=== PATIENT | female | born 1950 | race Caucasian/White ===

== ENCOUNTER 2017-09-02 14:33 | Emergency (ER) | payer MEDICARE, BC ==
[2017-09-02 14:54] VITALS: BP 170/90
--- NOTE | 2017-09-02 15:22 | ED Physician Documentation ---
PD HPI UPPER EXT INJURY - Stated complaint Stated Complaint: LT WRIST INJURY - Chief complaint Chief Complaint: Ext Problem - History obtained from History obtained from: Patient - History of Present Illness Location: Left, Wrist Type of injury: Fall (slipped on wet dirftwood and fell, catching fall with hands, and has pain left wrist with some swelling. Abrasion of left knee.). No : Twist Where injury occurred: Other Timing - onset: Today Timing - details: Abrupt onset, Still present Improved by: Rest Worsened by: Moving, Palpating Associated symptoms: Swelling. No: Weakness, Numbness Contributing factors: No: Anticoagulated, Prior ortho surgery Similar symptoms before: Has not had sx before Recently seen: Not recently seen Review of Systems Constitutional: denies: Fever Nose: denies: Rhinorrhea / runny nose, Congestion Throat: denies: Sore throat Cardiac: denies: Chest pain / pressure, Palpitations Respiratory: denies: Dyspnea, Cough GI: denies: Abdominal Pain, Nausea, Vomiting, Diarrhea Skin: reports: Abrasion (s) (left knee today). denies: Rash, Lesions, Laceration (s) Musculoskeletal: reports: Extremity swelling. denies: Neck pain, Back pain Neurologic: denies: Focal weakness, Numbness, Headache, Head injury PD PAST MEDICAL HISTORY - Past Medical History Cardiovascular: None Respiratory: None Neuro: None - Present Medications Home Medications: Ambulatory Orders Medication Instructions Recorded Confirmed Bimatoprost 0.01% Ophth Dops 09/02/17 [Lumigan 0.01% Ophth Drops] - Allergies Allergies/Adverse Reactions: Allergies Allergy/AdvReac Type Severity Reaction Status Date / Time No Known Drug Allergies Allergy Verified 09/02/17 14:54 - Living Situation Living Situation: reports: With spouse/s.o. Living Arrangement: reports: At home (not locally, but is visiting here. ) - Social History Does the pt smoke?: No PD ED PE NORMAL - Vitals Vital signs reviewed: Yes - General General: Alert and oriented X 3, No acute distress, Well developed/nourished - HEENT HEENT: Atraumatic, Pharynx benign - Neck Neck: Supple, no meningeal sign, No adenopathy - Cardiac Cardiac: RRR, No murmur - Respiratory Respiratory: Clear bilaterally, Other (no chestwall tenderness. ) - Abdomen Abdomen: Soft, Non tender - Back Back: No spinal TTP - Derm Derm: Normal color, Warm and dry - Extremities Extremities: Other (left forearm and wrist with tenderness and swelling distal forearm. No gross deformity. Painful for ROM of the wrist and is limited. ) - Neuro Neuro: Alert and oriented X 3, No motor deficit, No sensory deficit, Normal speech Results - Vitals Vitals: Oxygen O2 Source Room air - Rads (name of study) left wrist Radiology: Prelim report reviewed, EMP read contemporaneously (distal radius fracture, articular, without significant displacement nor angulation. ) Procedures - Splint (location) left wrist Splint applied by: Physician Type of splint: Fiberglass, Short arm (volar and dorsal) Other: Patient tolerated well, No complications, Neurovascular intact, Good alignment, Sling provided PD MEDICAL DECISION MAKING - ED course Complexity details: reviewed results, re-evaluated patient (she is visiting and will be seeing her daughter in [place] for a week (leaving in 3 days) and then will be returning home after that. ), considered differential, d/w patient - Sepsis Event Vital Signs: Oxygen O2 Source Room air Departure - Departure Disposition: 01 Home, Self Care Clinical Impression: Accidental fall Qualifiers: Encounter type: initial encounter Qualified Code(s): W19.XXXA - Unspecified fall, initial encounter Knee abrasion Qualifiers: Encounter type: initial encounter Laterality: left Qualified Code(s): S80.212A - Abrasion, left knee, initial encounter Distal radius fracture Qualifiers: Encounter type: initial encounter Fracture type: closed Fracture morphology: other extra-articular Laterality: left Qualified Code(s): S52.552A - Other extraarticular fracture of lower end of left radius, initial encounter for closed fracture Condition: Stable Record reviewed to determine appropriate education?: Yes Instructions: ED Fx Forearm Radius Ulna No Redu Requ Comments: instructions and script for norco done on paper due to down-time procedures. To follow up with Ortho back home. Discharge Date/Time: 09/02/17 17:07
--- NOTE | 2017-09-02 16:18 | XRAY Report ---
Procedure Date: 09/02/2017 Accession Number: [id number] / [id number] Procedure: XR - Wrist 3 View LT CPT Code: FULL RESULT: EXAM: LEFT WRIST RADIOGRAPHY EXAM DATE: 09/02/2017 03:50 PM. CLINICAL HISTORY: LEFT WRIST INJURY. COMPARISON: None. TECHNIQUE: 3 views. FINDINGS: Bones: Positive for a comminuted intra-articular fracture of the distal radius. There is 25 degrees of angulation of the distal fragment. No carpal bone fracture. Joints: No dislocation. Soft Tissues: There is distal forearm soft tissue swelling. IMPRESSION: 1. Distal radius fracture with 25 degrees angulation. RADIA
[2017-09-02] MEDS ORDERED: BACITRACIN OINT TOP ONE (17:00)
== END 2017-09-02 17:07 | disposition home or self-care (01) ==
LOC: ED 14:33
DX: S52.552A Other extraarticular fracture of lower end of left radius, initial encounter for closed fracture (principal); S80.212A Abrasion, left knee, initial encounter; W01.0XXA Fall on same level from slipping, tripping and stumbling without subsequent striking against object, initial encounter; Y93.01 Activity, walking, marching and hiking; Y92.832 Beach as the place of occurrence of the external cause
CPT/HCPCS: 29125; 99282; 99283